=== PATIENT | female | born 2000 | race Caucasian/White ===

== ENCOUNTER 2019-11-15 22:04 | Emergency (ER) | payer BC ==
[2019-11-15] MEDS ORDERED: SODIUM CHLORIDE 0.9% 1,000 ML IV STA (22:08)
[2019-11-15] MEDS ORDERED: DIPH,PERTUS(ACELL)TETVAC-LF 0.5 ML VIAL IM ONE (22:08)
[2019-11-15 22:20] LABS: Basophils % (A) 0 %; Eosinophils # (A) 0.1 k/uL (0-0.7); Eosinophils % (A) 1 %; HCT 39.1 % (34.0-46.0); HGB 13.1 gm/dL (11.4-16.0); Lymphocytes # (A) 5.2 k/uL (1.0-4.8); Lymphocytes % (A) 43 %; MCH 30.6 pg (25.0-35.0); MCHC 33.6 g/dL (31.0-37.0); MCV 91.1 fL (80.0-100.0); Mean Platelet Volume 7.1; Monocytes # (A) 0.3 k/uL (0-1.0); Monocytes % (A) 2 %; Neutrophils # (A) 6.3 k/uL (1.3-7.7); Neutrophils % (A) 52 %; Platelet Count 265 k/uL (150-450); RBC 4.29 m/uL (3.80-5.40); RDW 13.1 % (11.5-15.5)
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
[2019-11-15 22:32] LABS: ALT 99 U/L (4-34); AST 201 U/L (14-36); African American GFR (CKD) >90 (>60 ml/min/1.73 sqM); Albumin 3.9 g/dL (3.5-5.0); Alkaline Phosphatase 53 U/L (38-126); Amylase 73 U/L (30-110); Anion Gap 9 mmol/L; Blood Urea Nitrogen 6 mg/dL (7-17); Calcium 8.1 mg/dL (8.4-10.2); Carbon Dioxide 23 mmol/L (22-30); Chloride 108 mmol/L (98-107); Glucose 164 mg/dL (74-99); Non-African American GFR(CKD) >90 (>60 ml/min/1.73 sqM); Sodium 140 mmol/L (137-145); Total Bilirubin 0.3 mg/dL (0.2-1.3); Total Protein 6.5 g/dL (6.3-8.2)
--- NOTE | 2019-11-15 22:33 | XR ---
EXAMINATION TYPE: XR pelvis AP view DATE OF EXAM: 11/15/2019 COMPARISON: NONE HISTORY: Pain. Trauma. TECHNIQUE: FINDINGS: Pelvic ring is intact. Proximal femurs and hip joints are intact. IMPRESSION: Normal pelvis. No fracture seen.
[2019-11-15 22:35] LABS: INR 1.1 (<1.2); Partial Thromboplastin Time 22.3 sec (22.0-30.0); Prothrombin Time 10.9 sec (9.0-12.0)
[2019-11-15 22:36] LABS: Creatine Kinase 278 U/L (30-135)
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
[2019-11-15 22:49] LABS: Alcohol 125 mg/dL; Creatine Kinase MB 0.9 ng/mL (0.0-2.4); Troponin I <0.012 ng/mL (0.000-0.034)
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
[2019-11-15] MEDS ORDERED: SODIUM CHLORIDE 0.9% 1,000 ML IV ONE (23:18)
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
[2019-11-15 23:23] LABS: Appearance,Urine Clear (Clear); Bilirubin,Urine Negative (Negative); Blood,Urine Moderate (Negative); Color,Urine Colorless; Glucose,Urine (UA) 1+ (Negative); Ketones,Urine Negative (Negative); Leukocyte Esterase,Urine Negative (Negative); Mucus,Urine Rare /hpf; Nitrite,Urine Negative (Negative); PH, Urine 7.5 (5.0-8.0); Protein,Urine Negative (Negative); RBC,Urine 28 /hpf (0-5); Specific Gravity,Urine 1.008 (1.001-1.035); Urobilinogen,Urine <2.0 mg/dL (<2.0); WBC,Urine <1 /hpf (0-5)
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
[2019-11-15 23:32] LABS: Amphetamine Screen,Urine Not Detected (NotDetected); Barbiturate Screen,Urine Not Detected (NotDetected); Benzodiazepines Screen,Urine Not Detected (NotDetected); Cocaine Screen,Urine Not Detected (NotDetected); Methadone Screen, Urine Not Detected (NotDetected); Opiate Screen,Urine Not Detected (NotDetected); Oxycodone Screen, Urine Not Detected (NotDetected); Phencyclidine Screen,Urine Not Detected (NotDetected); Tricyclic Antidepressant,Urine Not Detected (NotDetected); Urn Cannabinoid Scrn Detected (NotDetected)
[2019-11-16] MEDS ORDERED: SUCCINYLCHOLINE CHLORIDE VIAL 200 MG/10 ML VIAL IV STA (00:01)
[2019-11-16] MEDS ORDERED: PANTOPRAZOLE 40 MG/10 ML VIAL IVP STA (00:10)
[2019-11-16] MEDS ORDERED: ONDANSETRON 4 MG/2 ML VIAL IVP STA (00:10)
[2019-11-16] MEDS ORDERED: MIDAZOLAM 1 MG/ML 5 ML VIAL IV STA ×2 (00:11→00:15)
[2019-11-16] MEDS ORDERED: PROPOFOL 1,000 MG in EMPTY BAG 1 BAG IV ONE (00:15)
[2019-11-16 02:51] VITALS: BP 105/65; PULSE 102; RESP 24; TEMP 97.9
== END 2019-11-16 00:05 | disposition other institution (70) ==
LOC: EC 22:04
DX: S06.5X0A Traumatic subdural hemorrhage without loss of consciousness, initial encounter (principal); S02.101A Fracture of base of skull, right side, initial encounter for closed fracture; S01.01XA Laceration without foreign body of scalp, initial encounter; S01.511A Laceration without foreign body of lip, initial encounter; S27.321A Contusion of lung, unilateral, initial encounter; S30.810A Abrasion of lower back and pelvis, initial encounter; S03.2XXA Dislocation of tooth, initial encounter; F10.129 Alcohol abuse with intoxication, unspecified; S40.212A Abrasion of left shoulder, initial encounter; S91.011A Laceration without foreign body, right ankle, initial encounter; R00.0 Tachycardia, unspecified; Z23 Encounter for immunization; V86.69XA Passenger of other special all-terrain or other off-road motor vehicle injured in nontraffic accident, initial encounter; Y92.410 Unspecified street and highway as the place of occurrence of the external cause
CPT/HCPCS: 36415; 94002; 93005; 86900; 86901; 80053; 82150; 82550; 82553; 83605; 83690; 84484; 85025; 85610; 85730; 86850; 81001; 81025; 80306; 80320; 72170; 71045; 72125; 70486; 70450; 71260; 74177; 90715; 99291; 99292; 31500; 96365; 96366; 96368; 96375 ×4; 96376; 90471; J0330; J2405; J0690; J2250; J2704; C9113; Q9967

== ENCOUNTER → 2022-03-31 | Outpatient (CLI) | payer BC ==
--- NOTE | 2022-04-01 04:47 | MR ---
EXAMINATION TYPE: MR iac wo/w con DATE OF EXAM: 03/31/2022 COMPARISON: None HISTORY: Right sided hearing loss and tinnitus. CONTRAST: Standard multiplanar, multisequence MRI departmental protocol images were obtained without contrast a nd with 6 mL intravenous Gadavist gadolinium contrast. Multiplanar multi echo imaging of the brain and posterior fossa without and with IV contrast. Ventricles of normal size. There is no mass effect or midline shift. No sign of intracranial hemorrha ge. Diffusion images show no sign of an acute infarct. There are a few scattered tiny areas of increa sed signal at the fernández-white matter junction both cerebral hemispheres measuring up to 3 mm. Total nu mber is approximately 5. The corpus callosum is intact. Brainstem is intact. No evidence of orbital mass. Sella turcica appear s intact. The internal auditory canals appear normal. Acoustic nerve and vestibular nerve appear normal. There is no cerebellopontine angle mass. There is no pathologic posterior fossa enhancement. There is sudha l enhancement of the venous sinuses. There is normal signal pattern of the temporal bones. No sign of mastoiditis. IMPRESSION: No focal posterior fossa abnormality. There are a few tiny white matter high signal foci of uncertain and doubtful significance. I do not see a cause for right-sided hearing loss.
== END | disposition home or self-care (01) ==
LOC: RADMRIMAIN 21:15
PROVIDERS: ATTEND Otolaryngology
DX: G93.9 Disorder of brain, unspecified (principal)
CPT/HCPCS: 70553; A9585